=== PATIENT | female | born 1970 | race Caucasian/White ===

== ENCOUNTER 2018-09-12 07:45 | Day surgery (SDC) | payer OTHER ==
[2018-09-11 17:46] LABS: Albumin 4.3 g/dL (3.4-5.0); Bilirubin Direct 0.1 mg/dL (0-0.2); Bilirubin Total 0.3 mg/dL (0.2-1.0); Protein, Total 7.7 g/dL (6.4-8.2)
--- NOTE | 2018-09-11 18:11 | RAD REPORT ---
EXAM DESCRIPTION: Aftab Mukherjee (2 Views)09/11/2018 5:26 pm CLINICAL HISTORY: Hypertension/preop COMPARISON: None FINDINGS: The lungs appear clear of acute infiltrate. The heart is borderline enlarged IMPRESSION: No acute abnormalities displayed
[2018-09-12] MEDS ORDERED: ROCURONIUM 50 MG/5 ML VIAL IV ONE (08:00)
[2018-09-12] MEDS ORDERED: GLYCOPYRROLATE 0.2 MG/ML SYR ONE ×3 (08:00→09:33)
[2018-09-12] MEDS ORDERED: PROPOFOL 200 MG/20 ML VIAL IV ONE ×2 (08:00→09:29)
[2018-09-12] MEDS ORDERED: LIDOCAINE 2% MPF 5 ML VIAL ONE (08:01)
[2018-09-12] MEDS ORDERED: FENTANYL CITR 250 MCG/5 ML ONE (08:01)
[2018-09-12] MEDS ORDERED: MIDAZOLAM HCL 2 MG/2 ML INJ ONE (08:01)
[2018-09-12] MEDS ORDERED: BUPIVACAINE 0.5% PF 10 ML VIAL ONE (08:02)
[2018-09-12] MEDS ORDERED: Ringers Lactate 1,000 ML IV ONE ×3 (08:03→10:16)
[2018-09-12] MEDS ORDERED: CEFOXITIN/SWI 1gm 1 GM/10 ML SYR ONE (08:05)
[2018-09-12] MEDS ORDERED: DEXAMETHASONE 4 MG/ML VIAL ONE (08:51)
[2018-09-12] MEDS ORDERED: Phenylephrine HCl 10 MG/ML 1 ML VIAL ONE (09:10)
[2018-09-12] MEDS ORDERED: NEOSTIGMINE 1 MG/ML -10 ML VIAL ONE (09:34)
[2018-09-12] MEDS: HYDROMORPHONE HCL 2 MG/ML inj ONE ×4 (10:04→10:19)
[2018-09-12] MEDS: HYDROMORPHONE HCL 1 MG/ML INJ ONE ×2 (10:25→10:30)
[2018-09-12] MEDS ORDERED: HYDROCODONE/APAP 7.5/325 MG TAB ONE (11:21)
[2018-09-12] MEDS ORDERED: ONDANSETRON 4 MG/2 ML VIAL ONE (12:47)
--- NOTE | 2018-09-12 21:42 | OP ---
Date of Procedure: 09/12/2018 Surgeon: Nael Dow MD Merchant Tailor: HEATHER Gandhi. Preoperative Diagnosis: Symptomatic cholelithiasis. Postoperative Diagnosis: Symptomatic cholelithiasis with an incarcerated ventral hernia. Procedure Performed: Lap brandon and repair of incarcerated ventral hernia. Estimated Blood Loss: Minimal. Specimen: Hernia sac and gallbladder. Findings: As above. Anesthesia: General. Complications: None. Disposition: The patient tolerated the procedure in stable condition and taken to the recovery in go od general condition. Description Of Procedure: The patient was brought to the OR and placed in supine position. General anesthesia was begun. The patient was prepped and draped in usual sterile fashion. Marcaine 0.5% wa s infiltrated locally. A 15-blade was used to make a 2 cm supraumbilical midline incision. There wa s a palpable mass. When the patient was under anesthesia, subcutaneous tissue was divided. A ventra l hernia was identified. The skin incision was extended slightly and then the hernia sac and content s were identified and excised, sent to Pathology as specimen. There was preperitoneal fat. The defe ct itself was approximately 2 cm. A #1 Vicryl stay suture was placed and then peritoneal cavity was entered with sharp and blunt dissection. A 12-mm trocar was placed into the peritoneal cavity under direct vision. Pneumoperitoneum was established. Three 5-mm trocars were placed, 1 in the epigastri um and 2 in the right subcostal region. Laparoscopy revealed chronic inflammation of the gallbladder . Fundus was retracted superiorly. Infundibulum was identified and retracted inferolaterally. Cyst ic duct and cystic artery were clearly identified with blunt dissection. Clips were placed. Both st ructures were divided. Cautery was used to remove the gallbladder from the liver bed. Bleeding on t he liver bed was controlled with cautery. The gallbladder was retrieved through hernia opening and p neumoperitoneum was reestablished. Right upper quadrant was irrigated. Effluent was clear. No evid ence of bleeding or bile leakage was appreciated. Subsequently, all trocars were removed under direc t vision. Then, the stay sutures were tied to each other as well as a #1 PDS [id number] suture to close the hernia defect. Subcutaneous wounds were irrigated. Bleeding was controlled with cauter y. A 3-0 chromic was used to approximate the subcutaneous tissue and close the skin. Sterile dressi ng was applied. The patient was awakened and taken to recovery in good general condition. Discharge Note: The patient will go to day surgery and home when stable. Disposition: Home. Condition: Stable. Discharge Instructions: Resume home meds and diet. Activity as tolerated. No heavy lifting. Remov e outer dressing in 2 days. Shower. Keep wound clean and dry. Follow up in my office in a week. C all for appointment. Tylenol No. 3 one tablet p.o. q.4 p.r.n. pain. Abdominal binder as ordered. /MODL Voice ID: [id number] Report ID: [id number]
== END 2018-09-12 14:20 | disposition home or self-care (01) ==
LOC: OR 07:45
PROVIDERS: ATTEND Surgery
PROC: 0WQF0ZZ Repair Abdominal Wall, Open Approach (ICD-10-PCS; 2018-09-12)
PROC: 0FT44ZZ Resection of Gallbladder, Percutaneous Endoscopic Approach (ICD-10-PCS; principal; 2018-09-12 09:00)
DX: K80.10 Calculus of gallbladder with chronic cholecystitis without obstruction (principal); K43.6 Other and unspecified ventral hernia with obstruction, without gangrene; I10 Essential (primary) hypertension; Z88.6 Allergy status to analgesic agent; Z91.040 Latex allergy status
CPT/HCPCS: 36415; 71046; 80076; 82150; 84703; 88302; 88304; 93005; J1170; J2250; J2370; J2405; J2704; J2710; J3010